=== PATIENT | male | born 1955 | race Caucasian/White ===

== ENCOUNTER 2018-04-24 16:07 | Emergency (ER) | payer OTHER ==
[~2018-04-24] VITALS: Ht 170.2 cm; Wt 90.0 kg
[2018-04-24 16:18] VITALS: Ht 170.2 cm; Wt 90.0 kg
[2018-04-24] MEDS ORDERED: ANAPROX DS550 MG PO (17:44)
[2018-04-24 18:22] VITALS: BP 132/68
== END 2018-04-24 18:22 | disposition home or self-care (01) ==
LOC: D.ER 16:07
DX: S92.352A Displaced fracture of fifth metatarsal bone, left foot, initial encounter for closed fracture (principal); X58.XXXA Exposure to other specified factors, initial encounter; Y93.89 Activity, other specified; Y92.89 Other specified places as the place of occurrence of the external cause; E11.9 Type 2 diabetes mellitus without complications; I10 Essential (primary) hypertension

== ENCOUNTER 2021-03-08 20:30 | Emergency (ER) | payer OTHER ==
[~2021-03-08] VITALS: Ht 170.2 cm; Wt 84.1 kg
[~2021-03-08 20:30] MED LIST: ANAPROX DS550 MG PO
[2021-03-08 20:33] VITALS: Ht 170.2 cm; Wt 84.1 kg
[2021-03-08 21:22] LABS: BASOPHILS 0.3 % (0-2); EOSINOPHILS 0.4 % (0-7); HEMATOCRIT 44.3 % (42.0-54.0); HEMOGLOBIN 14.7 g/dL (13.5-17.5); LYMPHOCYTES 17.8 % (15-50); MCH 30.8 pg (26.0-34.0); MCHC 33.3 g/dL (31.0-37.0); MCV 92.7 fL (80.0-100.0); MEAN PLATELET VOLUME 9.6 fL (7.4-10.4); MONOCYTES 7.4 % (2-11); NEUTROPHILS 74.1 % (40-80); RBC 4.78 10x6/uL (4.20-6.10); WBC 10.1 10x3/uL (4.8-10.8)
[2021-03-08 21:23] LABS: PLATELET COUNT 205 10x3/uL (130-400)
[2021-03-08 21:31] LABS: APTT 29.3 SECONDS (22.8-39.4); INR 1.11 (0.85-1.17); PROTIME 13.2 SECONDS (11.6-15.0)
[2021-03-08 21:35] LABS: CALC OSMOLALITY 281 mosm/kg (275-300); CALCIUM 8.7 mg/dL (8.5-10.1); CARBON DIOXIDE 28.6 mmol/L (21.0-32.0); CHLORIDE - SERUM 103 mmol/L (98-107); CREATININE - SERUM 0.8 mg/dL (0.6-1.3); POTASSIUM - SERUM 3.6 mmol/L (3.5-5.1); SODIUM 139 mmol/L (136-145); UREA NITROGEN 17 mg/dL (7-18); eGFR NON AFRICAN AMERICAN > 90 mL/min (90-120)
[2021-03-08 21:36] LABS: GLUCOSE 143 mg/dL (74-106)
[2021-03-08 22:07] LABS: UDS - AMPHET NEGATIVE QUAL (NEGATIVE); UDS - BARB NEGATIVE QUAL (NEGATIVE); UDS - BENZO NEGATIVE QUAL (NEGATIVE); UDS - COCAINE NEGATIVE QUAL (NEGATIVE); UDS - OPIATE NEGATIVE QUAL (NEGATIVE); UDS - PCP NEGATIVE QUAL (NEGATIVE); UDS - THC NEGATIVE QUAL (NEGATIVE)
[2021-03-08 22:08] LABS: ALBUMIN 3.6 g/dL (3.4-5.0); ALKALINE PHOSPHATASE 71 U/L (30-120); ALT (SGPT) 31 U/L (10-68); BILIRUBIN - TOTAL 0.53 mg/dL (0.2-1.3); CKMB 2.5 U/L (0.0-3.6); CREATINE KINASE 118 UL (21-232); MAGNESIUM - SERUM 1.9 mg/dL (1.8-2.4); THYROID STIMULATING HORMONE 0.91 uIU/mL (0.36-3.74)
[2021-03-08 22:13] LABS: BILIRUBIN NEGATIVE (NEGATIVE); KETONE NEGATIVE (NEGATIVE); NITRITE NEGATIVE (NEGATIVE); UROBILINOGEN NORMAL mg/dL (< 2)
[2021-03-08 22:15] LABS: TROPONIN-I < 0.017 ng/mL (0.000-0.060)
[2021-03-09 02:26] VITALS: BP 128/58
== END 2021-03-09 02:26 | disposition home or self-care (01) ==
LOC: D.ER 20:30
PROVIDERS: Emergency Medicine
DX: R41.0 Disorientation, unspecified (principal); F17.200 Nicotine dependence, unspecified, uncomplicated; G45.9 Transient cerebral ischemic attack, unspecified; E11.40 Type 2 diabetes mellitus with diabetic neuropathy, unspecified; I10 Essential (primary) hypertension

== ENCOUNTER 2021-03-15 09:53 | Emergency (ER) | payer OTHER ==
[~2021-03-15] VITALS: Ht 170.2 cm; Wt 85.0 kg
[2021-03-15 10:08] VITALS: Ht 170.2 cm; Wt 85.0 kg
[2021-03-15 10:28] LABS: BASOPHILS 0.3 % (0-2); EOSINOPHILS 0.6 % (0-7); HEMATOCRIT 42.2 % (42.0-54.0); HEMOGLOBIN 14.4 g/dL (13.5-17.5); LYMPHOCYTES 22.9 % (15-50); MCH 31.4 pg (26.0-34.0); MCHC 34.1 g/dL (31.0-37.0); MCV 92.1 fL (80.0-100.0); MEAN PLATELET VOLUME 9.3 fL (7.4-10.4); MONOCYTES 8.5 % (2-11); NEUTROPHILS 67.7 % (40-80); PLATELET COUNT 231 10x3/uL (130-400); RBC 4.59 10x6/uL (4.20-6.10); WBC 10.5 10x3/uL (4.8-10.8)
[2021-03-15 10:38] LABS: APTT 27.5 SECONDS (22.8-39.4); INR 1.05 (0.85-1.17); PROTIME 12.6 SECONDS (11.6-15.0)
[2021-03-15 10:55] LABS: ALBUMIN 3.8 g/dL (3.4-5.0); ALKALINE PHOSPHATASE 69 U/L (30-120); ALT (SGPT) 25 U/L (10-68); BILIRUBIN - TOTAL 0.53 mg/dL (0.2-1.3); CALC OSMOLALITY 284 mosm/kg (275-300); CALCIUM 9.3 mg/dL (8.5-10.1); CARBON DIOXIDE 27.9 mmol/L (21.0-32.0); CHLORIDE - SERUM 105 mmol/L (98-107); CKMB 2.3 U/L (0.0-3.6); CREATINE KINASE 101 UL (21-232); CREATININE - SERUM 0.8 mg/dL (0.6-1.3); MAGNESIUM - SERUM 1.6 mg/dL (1.8-2.4); POTASSIUM - SERUM 3.6 mmol/L (3.5-5.1); PROTEIN - SERUM 7.3 g/dL (6.4-8.2); SODIUM 143 mmol/L (136-145); THYROID STIMULATING HORMONE 0.94 uIU/mL (0.36-3.74); TROPONIN-I < 0.017 ng/mL (0.000-0.060); UREA NITROGEN 20 mg/dL (7-18); eGFR NON AFRICAN AMERICAN > 90 mL/min (90-120)
[2021-03-15 10:58] LABS: GLUCOSE 39 mg/dL (74-106)
[2021-03-15 13:57] VITALS: BP 118/61
[2021-03-16] MEDS ORDERED: GABAPENTIN100 MG PO (19:52)
[2021-03-16] MEDS ORDERED: LANTUS INS100 UNITS/ SC (19:52)
== END 2021-03-15 13:58 | disposition home or self-care (01) ==
LOC: D.ER 09:53
PROVIDERS: Emergency Medicine
DX: R41.0 Disorientation, unspecified (principal); E11.649 Type 2 diabetes mellitus with hypoglycemia without coma; J32.0 Chronic maxillary sinusitis; Z79.84 Long term (current) use of oral hypoglycemic drugs; E11.40 Type 2 diabetes mellitus with diabetic neuropathy, unspecified; Z86.73 Personal history of transient ischemic attack (TIA), and cerebral infarction without residual deficits; I10 Essential (primary) hypertension; Z72.0 Tobacco use

== ENCOUNTER 2021-03-16 19:43 | Emergency (ER) | payer OTHER ==
[~2021-03-16] VITALS: Ht 170.2 cm; Wt 85.0 kg
[2021-03-16 19:45] VITALS: Ht 170.2 cm; Wt 85.0 kg
[2021-03-16] MEDS ORDERED: GABAPENTIN100 MG PO (19:52)
[2021-03-16] MEDS ORDERED: LANTUS INS100 UNITS/ SC (19:52)
[2021-03-16 20:19] LABS: BASOPHILS 0.5 % (0-2); EOSINOPHILS 1.5 % (0-7); HEMATOCRIT 42.6 % (42.0-54.0); HEMOGLOBIN 14.1 g/dL (13.5-17.5); LYMPHOCYTES 21.9 % (15-50); MCH 30.9 pg (26.0-34.0); MCHC 33.1 g/dL (31.0-37.0); MCV 93.3 fL (80.0-100.0); MEAN PLATELET VOLUME 9.7 fL (7.4-10.4); MONOCYTES 9.3 % (2-11); NEUTROPHILS 66.8 % (40-80); PLATELET COUNT 250 10x3/uL (130-400); RBC 4.56 10x6/uL (4.20-6.10); RDW 13.8 % (11.5-14.5); WBC 11.2 10x3/uL (4.8-10.8)
[2021-03-16 20:33] LABS: CALC OSMOLALITY 282 mosm/kg (275-300); CALCIUM 9.2 mg/dL (8.5-10.1); CARBON DIOXIDE 29.9 mmol/L (21.0-32.0); CHLORIDE - SERUM 102 mmol/L (98-107); CREATININE - SERUM 0.9 mg/dL (0.6-1.3); POTASSIUM - SERUM 3.4 mmol/L (3.5-5.1); SODIUM 141 mmol/L (136-145); UREA NITROGEN 22 mg/dL (7-18); eGFR NON AFRICAN AMERICAN 90 mL/min (90-120)
[2021-03-16 20:39] LABS: GLUCOSE 72 mg/dL (74-106)
[2021-03-16 20:40] LABS: ALBUMIN 3.8 g/dL (3.4-5.0); ALKALINE PHOSPHATASE 77 U/L (30-120); ALT (SGPT) 21 U/L (10-68); BILIRUBIN - TOTAL 0.35 mg/dL (0.2-1.3); PROTEIN - SERUM 7.4 g/dL (6.4-8.2)
[2021-03-16 20:47] LABS: BILIRUBIN NEGATIVE (NEGATIVE); KETONE NEGATIVE mg/dL (< 1+); NITRITE NEGATIVE (NEGATIVE); PH 6.5 (5.0-8.0); UROBILINOGEN NORMAL mg/dL (< 2)
[2021-03-16 21:57] VITALS: BP 139/59
== END 2021-03-16 21:55 | disposition home or self-care (01) ==
LOC: D.ER 19:43
PROVIDERS: Family Medicine
DX: E11.649 Type 2 diabetes mellitus with hypoglycemia without coma (principal); E87.6 Hypokalemia; Z86.73 Personal history of transient ischemic attack (TIA), and cerebral infarction without residual deficits; E11.40 Type 2 diabetes mellitus with diabetic neuropathy, unspecified; I10 Essential (primary) hypertension; Z79.4 Long term (current) use of insulin; Z72.0 Tobacco use; T38.3X5A Adverse effect of insulin and oral hypoglycemic [antidiabetic] drugs, initial encounter; R41.0 Disorientation, unspecified